=== PATIENT | male | born 1990 | race African-American/Black ===

== ENCOUNTER 2020-12-08 08:13 | Emergency (ER) | payer SELFPAY ==
[2020-12-08] MEDS ORDERED: Cyclobenzaprine 10 MG TAB ONE (10:02)
[2020-12-08] MEDS ORDERED: Ketorolac Tromethamine 30 MG/ML VIAL ONE (10:02)
== END 2020-12-08 11:18 | disposition home or self-care (01) ==
LOC: CSHERS 08:13
DX: M25.511 Pain in right shoulder (principal); F17.210 Nicotine dependence, cigarettes, uncomplicated
CPT/HCPCS: 96372; J1885

== ENCOUNTER 2022-03-29 08:58 | Emergency (ER) | payer SELFPAY ==
[2022-03-29] MEDS ORDERED: Dicyclomine 20 MG/2 ML VIAL ONE (09:43)
[2022-03-29] MEDS ORDERED: Ondansetron ODT 4 MG TAB ONE (09:44)
[2022-03-29] MEDS ORDERED: Dicyclomine 20 MG TAB ONE (09:46)
[2022-03-29 10:07] LABS: #Eosinphils 0.1 10x3/uL (0.0-0.5); #Monocytes 0.6 10x3/uL (0.0-1.1); #Neutrophils 2.9 10x3/uL (1.5-8.4); %Basophils 0.3 % (0.0-2.0); %Eosinophils 1.1 % (0.0-6.0); %Lymphocytes 45.4 % (18.0-47.0); %Monocytes 9.2 % (0.0-10.0); %Neutrophils 43.8 % (40.0-75.0); Hemoglobin 13.2 g/dL (13.5-17.5); Mean Corpuscular HGB CONC 32.6 g/dL (32.0-36.0); Mean Corpuscular Hemoglobin 27.3 pg (27.0-33.0); Mean Corpuscular Volume 83.9 fl (81.2-95.1); Mean Platelet Volume 10.1 fl (7.4-10.4); Platelet Count 287 10x3/uL (150-450); RBC Distribution Width 13.8 % (11.5-14.5); Red Blood Cell (RBC) Count 4.83 10x6/uL (4.32-5.72); White Blood Cell (WBC) Count 6.6 10x3/uL (3.5-10.5)
[2022-03-29 10:16] LABS: ALT (SGPT) 26 U/L (8-55); AST (SGOT) 17 U/L (5-34); Alkaline Phosphatase 52 U/L (40-110); Anion Gap 9 mmol/L (10-20); BUN (Urea Nitrogen) 16 mg/dL (8.9-20.6); Bilirubin, Total 0.7 mg/dL (0.2-1.2); Calc. Creatinine Clearance 0 mL/min (70-130); Calcium 9.2 mg/dL (7.8-10.44); Carbon Dioxide 25 mmol/L (22-29); Chloride 107 mmol/L (98-107); Estimated GFR 94; Globulin 3.3 g/dL (2.4-3.5); Glucose 109 mg/dL (70-105); Lipase 19 U/L (8-78); Potassium 4.3 mmol/L (3.5-5.1); Protein, Total 7.3 g/dL (6.0-8.3); Sodium 137 mmol/L (136-145)
== END 2022-03-29 10:30 | disposition home or self-care (01) ==
LOC: CSHERS 08:58
DX: K52.9 Noninfective gastroenteritis and colitis, unspecified (principal); F17.200 Nicotine dependence, unspecified, uncomplicated
CPT/HCPCS: 36415; 80053; 83690; 85025; 99284; Q0162

== ENCOUNTER 2022-04-25 11:14 | Emergency (ER) | payer SELFPAY | END 2022-04-25 12:40 | disposition home or self-care (01) | LOC: CSHERS 11:14 | DX: M54.41 Lumbago with sciatica, right side (principal); F17.200 Nicotine dependence, unspecified, uncomplicated ==

== ENCOUNTER 2022-09-05 05:53 | Emergency (ER) | payer SELFPAY ==
[2022-09-05] MEDS ORDERED: Sucralfate 1 GM/10 ML UDCUP ONE (07:01)
== END 2022-09-05 07:04 | disposition home or self-care (01) ==
LOC: CSHERS 05:53
DX: R10.13 Epigastric pain (principal); K21.9 Gastro-esophageal reflux disease without esophagitis; F17.210 Nicotine dependence, cigarettes, uncomplicated
CPT/HCPCS: 99283

== ENCOUNTER 2023-01-20 19:33 | Emergency (ER) | payer SELFPAY | END 2023-01-20 20:16 | disposition home or self-care (01) | LOC: CSHERS 19:33 | DX: B34.9 Viral infection, unspecified (principal); F17.210 Nicotine dependence, cigarettes, uncomplicated | CPT/HCPCS: 99283 ==

== ENCOUNTER 2024-03-06 22:59 | Emergency (ER) | payer SELFPAY ==
[2024-03-06] MEDS ORDERED: HYDROcodone/Acetaminophen 5/325 mg Tablet ONE (23:53)
== END 2024-03-07 00:21 | disposition home or self-care (01) ==
LOC: CSHERS 22:59
DX: S63.502A Unspecified sprain of left wrist, initial encounter (principal); F17.210 Nicotine dependence, cigarettes, uncomplicated; X58.XXXA Exposure to other specified factors, initial encounter; Y92.39 Other specified sports and athletic area as the place of occurrence of the external cause